=== PATIENT | female | born 1940 | race Caucasian/White ===

== ENCOUNTER 2024-12-25 16:09 | Emergency (ER) | payer MEDICARE, OTHER ==
[2024-12-25 16:50] LABS: Absolute Neutrophil Ct (ANC) 7.66 x10^3/uL (1.56-6.13); BASOPHIL % 0.2 % (0.1-1.2); Basophil (Absolute #) 0.02 x10^3/uL (0.01-0.08); Eosinophil % 0.5 % (0.7-5.8); Eosinophil (Absolute #) 0.05 x10^3/uL (0.04-0.36); Hematocrit 50.1 % (34.1-44.9); Hemoglobin 16.4 g/dL (11.2-15.7); IMMATURE GRAN # 0.03 x10^3u/L (0.001-0.031); IMMATURE GRAN % 0.3 % (0.001-0.429); Lymphocyte (Absolute #) 2.29 x10^3/uL (1.18-3.74); Lymphocytes % 21.1 % (19.3-51.7); Mean Cell Volume 83.5 fL (79.4-94.8); Mean Corpuscular Hemoglobin 27.3 pg (25.6-32.2); Mean Corpuscular Hgb Concent. 32.7 g/dL (32.2-35.5); Mean Platelet Volume 11.6 fL (9.4-12.3); Monocyte (Absolute #) 0.79 x10^3/uL (0.24-0.86); Monocytes % 7.3 % (4.7-12.5); Neutrophil % 70.6 % (34.0-71.1); Platelet Count 292 x10^3/uL (182-369); Red Cell Distribution Width 13.2 % (11.7-14.4); White Blood Count 10.8 x10^3/uL (3.98-10.04)
--- NOTE | 2024-12-25 16:59 | ERPHSYRPT ---
- History of Present Illness Time Seen by Provider: 12/25/24 16:28 Historian: patient, family, EMS Exam Limitations: clinical condition Physician History: 84 years old female with history of hypertension, hiatal hernia, breast cancer presented in the ER with almost 3 days history of nausea vomiting with upper abdominal pain. Patient per family has not been taking her medications and it felt as if she was confused earlier, not acting at her baseline when they checked on her today. Patient is also having coffee-ground emesis and dark stool. Reports moderate intensity dull aching to sharp pain in the upper abdomen which comes and goes. No difficulty breathing reported. No fever or chills reported. Reports decreased oral intake for the last 2 to 3 days. Not a good historian and history is limited. Allergies/Adverse Reactions: adhesive Adverse Reaction (Verified 04/23/16 18:45) Home Medications: Amlodipine Besylate 5 mg [Norvasc 5 mg] 5 mg PO QHS 03/17/16 [History] Duloxetine HCl 60 mg PO DAILY 12/25/24 [History] Losartan Potassium 50 mg [Cozaar 50 MG] 50 mg PO DAILY 12/25/24 [History] Metformin HCl 500 mg [Glucophage 500 MG] 500 mg PO BID 12/25/24 [History] PANTOPRAZOLE 40 mg Tablet [Protonix 40MG Tablet] 40 mg PO DAILY 12/25/24 [History] Rosuvastatin Calcium 10 mg PO DAILY 12/25/24 [History] Temazepam 15 mg [Restoril 15 MG] 15 mg PO HS 12/25/24 [History] Hx Tetanus, Diphtheria Vaccination/Date Given: Yes Hx Influenza Vaccination/Date Given: Yes Hx Pneumococcal Vaccination/Date Given: Yes - Review of Systems Constitutional: Fatigue, Weakness Eyes: No Symptoms Ears, Nose, & Throat: No Symptoms Respiratory: No Symptoms Cardiac: No Symptoms Abdominal/Gastrointestinal: Abdominal Pain, Nausea, Diarrhea, Melena Genitourinary Symptoms: No Symptoms Musculoskeletal: Arthralgias Neurological: No Symptoms Endocrine: No Symptoms Hematologic/Lymphatic: No Symptoms - Past Medical History Neurological History: No Pertinent History Cardiac History: High Cholesterol, Hypertension Respiratory History: No Pertinent History Endocrine Medical History: Diabetes Type II, Other Musculoskeletal History: Osteoarthritis Other Medical History: SEES DR WEBSTER FOR KIDNEY DISEASE STAGE 3. HX BREAST CA WITH RIGHT MASTECTOMY. - NO CHEMO/RADIATION. VACCINATED FOR COVID. - Past Surgical History Past Surgical History: Yes Neuro Surgical History: No Pertinent History Cardiac: No Pertinent History Respiratory: No Pertinent History Gastrointestinal: Cholecystectomy, Hernia Repair Genitourinary: No Pertinent History Musculoskeletal: Joint Replacement, Orthopedic Surgery Female Surgical History: Mastectomy Other Surgical History: isael knee.replacement cataract removed. knee arthroscopy. mastectomy on R breast. breast reduction on L side - Social History Smoking Status: Former smoker Exposure to second hand smoke: No - Nursing Vital Signs Nursing Vital Signs: Initial Vital Signs Temperature 98.9 F 12/25/24 16:10 Pulse Rate 98 H 12/25/24 16:10 Respiratory Rate 21 12/25/24 16:10 Blood Pressure 143/108 12/25/24 16:10 O2 Sat by Pulse Oximetry 98 12/25/24 16:10 Pain Scale Pain Intensity 0 - Physical Exam General Appearance: no apparent distress Eye Exam: PERRL/EOMI Ears, Nose, Throat Exam: normal ENT inspection Neck Exam: normal inspection, non-tender, supple, full range of motion Respiratory Exam: normal breath sounds, lungs clear Cardiovascular Exam: regular rate/rhythm, normal heart sounds Gastrointestinal/Abdomen Exam: soft, normal bowel sounds, tenderness (Upper abdominal tenderness) Back Exam: normal inspection, normal range of motion Extremity Exam: normal inspection, normal range of motion Neurologic Exam: alert, oriented x 3, cooperative, pole incisor operator II-XII nml as tested Skin Exam: normal color SpO2 Interpretation: normal SpO2: 96 O2 Delivery: Room Air Ordered Tests: Active Orders 24 hr Category Date Time Status EKG-ER Only STAT Care 12/25/24 16:43 Active IV Insertion STAT Care 12/25/24 16:43 Active NPO (ED) STAT Care 12/25/24 16:43 Active ABDOMEN AND PELVIS W CONTRAST [CT] Stat Exams 12/25/24 16:44 Taken CBC W DIFF Stat Lab 12/25/24 16:35 Completed CMP Stat Lab 12/25/24 16:35 Completed CULTURE,URINE Stat Lab 12/25/24 18:20 Received LIPASE Stat Lab 12/25/24 16:35 Completed Lactic Acid Stat Lab 12/25/24 16:50 Completed Lactic Acid Stat Lab 12/25/24 18:51 Completed TROPONIN Q4H Lab 12/25/24 16:35 Completed TROPONIN Q4H Lab 12/25/24 19:50 Completed TROPONIN Q4H Lab 12/26/24 00:45 Ordered UA W/RFX UR CULTURE Stat Lab 12/25/24 18:20 Completed Medication Summary Generic Name Dose Route Start Last Admin Trade Name Onelia PRN Reason Stop Dose Admin Pantoprazole Sodium 80 mg/ 500 mls @ 50 mls/hr 12/25/24 17:45 12/25/24 18:34 Sodium Chloride IV 01/24/25 17:44 50 mls/hr .Q10H JO ANN 50 mls/hr Administration Octreotide Acetate 50 mcg 12/25/24 21:45 Octreotide Acetate 50 Mcg/Ml Ampul IV 01/24/25 21:44 DIRECTIONS UNKNOWN JO ANN Discontinued Medications Generic Name Dose Route Start Last Admin Trade Name Garyq PRN Reason Stop Dose Admin Fentanyl Citrate 50 mcg 12/25/24 16:43 12/25/24 17:03 Fentanyl Citrate 100 Mcg/2 Ml* Vial IV 12/25/24 16:44 50 mcg STAT ONE Administration Fentanyl Citrate Confirm 12/25/24 17:00 Fentanyl Citrate 100 Mcg/2 Ml* Vial Administered 12/25/24 17:01 Dose 100 mcg .ROUTE .STK-MED ONE Fentanyl Citrate 50 mcg 12/25/24 19:47 12/25/24 19:52 Fentanyl Citrate 100 Mcg/2 Ml* Vial IV 12/25/24 19:48 50 mcg STAT ONE Administration Fentanyl Citrate Confirm 12/25/24 19:49 Fentanyl Citrate 100 Mcg/2 Ml* Vial Administered 12/25/24 19:50 Dose 100 mcg .ROUTE .STK-MED ONE Hydralazine HCl 10 mg 12/25/24 18:09 12/25/24 18:35 Hydralazine Hcl 20 Mg/Ml Vial IV 12/25/24 18:10 10 mg STAT ONE Administration Hydralazine HCl Confirm 12/25/24 18:31 Hydralazine Hcl 20 Mg/Ml Vial Administered 12/25/24 18:32 Dose 20 mg .ROUTE .STK-MED ONE Hydralazine HCl 10 mg 12/25/24 21:42 Hydralazine Hcl 20 Mg/Ml Vial IV 12/25/24 21:43 STAT ONE Sodium Chloride 1,000 mls @ 999 mls/hr 12/25/24 16:43 12/25/24 18:43 Sodium Chloride 0.9% 1000 Ml IV 12/25/24 17:43 Infused .Q1H1M STA Infusion Sodium Chloride Confirm 12/25/24 17:00 Sodium Chloride 0.9% 1000 Ml Administered 12/25/24 17:01 Dose 1,000 mls @ ud .ROUTE .STK-MED ONE Sodium Chloride Confirm 12/25/24 18:00 Sodium Chloride 0.9% 500 Ml Administered 12/25/24 18:01 Dose 500 mls @ ud IV .STK-MED ONE Ceftriaxone Sodium 2 gm in 100 mls @ 200 mls/hr 12/25/24 20:26 12/25/24 20:34 Rocephin 2 Gm/100 Ml Nacl IV 12/25/24 20:55 100 ml/hr STAT ONE 100 mls/hr Administration Ceftriaxone Sodium Confirm 12/25/24 20:31 Rocephin 2 Gm/100 Ml Nacl Administered 12/25/24 20:32 Dose 2 gm in 100 mls @ ud IV .STK-MED ONE Octreotide Acetate 50 mcg 12/25/24 21:39 Octreotide Acetate 50 Mcg/Ml Ampul IV 12/25/24 21:40 ONCE STA Ondansetron HCl 4 mg 12/25/24 16:43 12/25/24 17:03 Ondansetron Hcl 4 Mg/2 Ml Vial IV 12/25/24 16:44 4 mg STAT ONE Administration Ondansetron HCl Confirm 12/25/24 17:00 Ondansetron Hcl 4 Mg/2 Ml Vial Administered 12/25/24 17:01 Dose 4 mg .ROUTE .STK-MED ONE Pantoprazole Sodium 40 mg 12/25/24 16:43 12/25/24 17:03 Pantoprazole 40 Mg Vial IV 12/25/24 16:44 40 mg STAT ONE Administration Pantoprazole Sodium Confirm 12/25/24 17:00 Pantoprazole 40 Mg Vial Administered 12/25/24 17:01 Dose 40 mg IV .STK-MED ONE Pantoprazole Sodium Confirm 12/25/24 18:00 Pantoprazole 40 Mg Vial Administered 12/25/24 18:01 Dose 80 mg IV .STK-MED ONE Lab/Rad Data: Laboratory Result Diagrams 12/25/24 16:35 12/25/24 16:35 Laboratory Results 0512/25/24 12/25/24 Range/Units 19:50 19:36 18:51 WBC (3.98-10.04) x10^3/uL RBC (3.93-5.22) x10^6/uL Hgb (11.2-15.7) g/dL Hct (34.1-44.9) % MCV (79.4-94.8) fL MCH (25.6-32.2) pg MCHC (32.2-35.5) g/dL RDW (11.7-14.4) % Plt Count (182-369) x10^3/uL MPV (9.4-12.3) fL Gran % (34.0-71.1) % Immature Gran % (Auto) (0.001-0.429) % Nucleat RBC Rel Count (0.00-0.2) % Eos # (Auto) (0.04-0.36) x10^3/uL Immature Gran # (Auto) (0.001-0.031) x10^3u/L Absolute Lymphs (auto) (1.18-3.74) x10^3/uL Absolute Monos (auto) (0.24-0.86) x10^3/uL Absolute Nucleated RBC (0.00-0.012) x10^3u/L Lymphocytes % (19.3-51.7) % Monocytes % (4.7-12.5) % Eosinophils % (0.7-5.8) % Basophils % (0.1-1.2) % Absolute Granulocytes (1.56-6.13) x10^3/uL Basophils # (0.01-0.08) x10^3/uL Sodium (135-145) mmol/L Potassium (3.5-5.1) mmol/L Chloride (98-107) mmol/L Carbon Dioxide (22-30) mmol/L Anion Gap (5-15) MEQ/L BUN (7-17) mg/dL Creatinine (0.52-1.04) mg/dL Estimated GFR ML/MIN Glucose (74-106) mg/dL Lactic Acid 2.4 H (0.4-2.0) Calcium (8.4-10.2) mg/dL Total Bilirubin (0.2-1.3) mg/dL AST (14-36) U/L ALT (0-35) U/L Alkaline Phosphatase (38-126) U/L Ammonia < 9 L (9-30) umol/L Troponin I < 0.012 (0.000-0.033) ng/mL Serum Total Protein (6.3-8.2) g/dL Albumin (3.5-5.0) g/dL Lipase (23-300) U/L Urine Color (Yellow) Urine Appearance (Clear) Urine pH (4.6-8.0) Ur Specific [place] (1.005-1.030) Urine Protein (Negative) Urine Glucose (UA) (Negative) mg/dL Urine Ketones (Negative) Urine Blood (Negative) Urine Nitrite (Negative) Urine Bilirubin (Negative) Urine Urobilinogen (0.2) mg/dL Ur Leukocyte Esterase (Negative) U Hyaline Cast (Auto) (0-2) /LPF Urine Microscopic RBC (0-5) /HPF Urine Microscopic WBC (0-5) /HPF Ur Epithelial Cells (None Seen) /HPF Urine Bacteria (None Seen) /HPF Urine Culture Reflexed (NO) 12/25/24 12/25/24 12/25/24 Range/Units 18:20 16:50 16:35 WBC (3.98-10.04) x10^3/uL RBC (3.93-5.22) x10^6/uL Hgb (11.2-15.7) g/dL Hct (34.1-44.9) % MCV (79.4-94.8) fL MCH (25.6-32.2) pg MCHC (32.2-35.5) g/dL RDW (11.7-14.4) % Plt Count (182-369) x10^3/uL MPV (9.4-12.3) fL Gran % (34.0-71.1) % Immature Gran % (Auto) (0.001-0.429) % Nucleat RBC Rel Count (0.00-0.2) % Eos # (Auto) (0.04-0.36) x10^3/uL Immature Gran # (Auto) (0.001-0.031) x10^3u/L Absolute Lymphs (auto) (1.18-3.74) x10^3/uL Absolute Monos (auto) (0.24-0.86) x10^3/uL Absolute Nucleated RBC (0.00-0.012) x10^3u/L Lymphocytes % (19.3-51.7) % Monocytes % (4.7-12.5) % Eosinophils % (0.7-5.8) % Basophils % (0.1-1.2) % Absolute Granulocytes (1.56-6.13) x10^3/uL Basophils # (0.01-0.08) x10^3/uL Sodium (135-145) mmol/L Potassium (3.5-5.1) mmol/L Chloride (98-107) mmol/L Carbon Dioxide (22-30) mmol/L Anion Gap (5-15) MEQ/L BUN (7-17) mg/dL Creatinine (0.52-1.04) mg/dL Estimated GFR ML/MIN Glucose (74-106) mg/dL Lactic Acid 2.3 H (0.4-2.0) Calcium (8.4-10.2) mg/dL Total Bilirubin (0.2-1.3) mg/dL AST (14-36) U/L ALT (0-35) U/L Alkaline Phosphatase (38-126) U/L Ammonia (9-30) umol/L Troponin I < 0.012 (0.000-0.033) ng/mL Serum Total Protein (6.3-8.2) g/dL Albumin (3.5-5.0) g/dL Lipase (23-300) U/L Urine Color Yellow (Yellow) Urine Appearance Clear (Clear) Urine pH 6.0 (4.6-8.0) Ur Specific [place] >=1.030 A (1.005-1.030) Urine Protein >=1000 A (Negative) Urine Glucose (UA) Negative (Negative) mg/dL Urine Ketones 15 A (Negative) Urine Blood Trace (Negative) Urine Nitrite Negative (Negative) Urine Bilirubin Negative (Negative) Urine Urobilinogen 1.0 A (0.2) mg/dL Ur Leukocyte Esterase Negative (Negative) U Hyaline Cast (Auto) NONE SEEN (0-2) /LPF Urine Microscopic RBC 0-2 (0-5) /HPF Urine Microscopic WBC 3-5 (0-5) /HPF Ur Epithelial Cells Rare (None Seen) /HPF Urine Bacteria Many A (None Seen) /HPF Urine Culture Reflexed YES (NO) 12/25/24 12/25/24 Range/Units 16:35 16:35 WBC 10.8 H (3.98-10.04) x10^3/uL RBC 6.00 H (3.93-5.22) x10^6/uL Hgb 16.4 H (11.2-15.7) g/dL Hct 50.1 H (34.1-44.9) % MCV 83.5 (79.4-94.8) fL MCH 27.3 (25.6-32.2) pg MCHC 32.7 (32.2-35.5) g/dL RDW 13.2 (11.7-14.4) % Plt Count 292 (182-369) x10^3/uL MPV 11.6 (9.4-12.3) fL Gran % 70.6 (34.0-71.1) % Immature Gran % (Auto) 0.3 (0.001-0.429) % Nucleat RBC Rel Count 0.0 (0.00-0.2) % Eos # (Auto) 0.05 (0.04-0.36) x10^3/uL Immature Gran # (Auto) 0.03 (0.001-0.031) x10^3u/L Absolute Lymphs (auto) 2.29 (1.18-3.74) x10^3/uL Absolute Monos (auto) 0.79 (0.24-0.86) x10^3/uL Absolute Nucleated RBC 0.00 (0.00-0.012) x10^3u/L Lymphocytes % 21.1 (19.3-51.7) % Monocytes % 7.3 (4.7-12.5) % Eosinophils % 0.5 L (0.7-5.8) % Basophils % 0.2 (0.1-1.2) % Absolute Granulocytes 7.66 H (1.56-6.13) x10^3/uL Basophils # 0.02 (0.01-0.08) x10^3/uL Sodium 140 (135-145) mmol/L Potassium 3.6 (3.5-5.1) mmol/L Chloride 104 (98-107) mmol/L Carbon Dioxide 19 L (22-30) mmol/L Anion Gap 20.0 H (5-15) MEQ/L BUN 38 H (7-17) mg/dL Creatinine 0.87 (0.52-1.04) mg/dL Estimated GFR 66.5 ML/MIN Glucose 208 H (74-106) mg/dL Lactic Acid (0.4-2.0) Calcium 10.5 H (8.4-10.2) mg/dL Total Bilirubin 0.70 (0.2-1.3) mg/dL AST 22 (14-36) U/L ALT 16 (0-35) U/L Alkaline Phosphatase 68 (38-126) U/L Ammonia (9-30) umol/L Troponin I (0.000-0.033) ng/mL Serum Total Protein 6.3 (6.3-8.2) g/dL Albumin 4.4 (3.5-5.0) g/dL Lipase 54 (23-300) U/L Urine Color (Yellow) Urine Appearance (Clear) Urine pH (4.6-8.0) Ur Specific [place] (1.005-1.030) Urine Protein (Negative) Urine Glucose (UA) (Negative) mg/dL Urine Ketones (Negative) Urine Blood (Negative) Urine Nitrite (Negative) Urine Bilirubin (Negative) Urine Urobilinogen (0.2) mg/dL Ur Leukocyte Esterase (Negative) U Hyaline Cast (Auto) (0-2) /LPF Urine Microscopic RBC (0-5) /HPF Urine Microscopic WBC (0-5) /HPF Ur Epithelial Cells (None Seen) /HPF Urine Bacteria (None Seen) /HPF Urine Culture Reflexed (NO) - Progress Progress: improved Progress Note: 12/25/24 20:42 differential diagnoses include but not limited to: Upper GI bleed, duodenal/gastric ulcer perforation, esophageal varices bleed, obstruction, sepsis 84 years old with history of hypertension, GERD/hiatal hernia is evaluated in the ER for abdominal pain with coffee-ground emesis and dark stool with some questionable confusion. Patient is awake alert and answering questions appropriately throughout stay in the ER. She although is a little slow. No focal neurodeficit. No fall or trauma reported. She is given fluid bolus and symptomatic treatment and started on Protonix bolus followed by drip for GI bleed. Patient was hypertensive, has not been taking her blood pressure medication with blood pressure in 200s, given hydralazine with improvement in pressure to 150s/160s. Has normal white count, hemoglobin of 16 with a baseline around 13 which I believe is secondary to dehydration, chemistries with elevated BUN of 38, baseline in 20s and normal creatinine. Obtain CT abdomen pelvis with contrast which showed mild abdominal pelvic ascites with cirrhotic changes and no other acute intra-abdominal finding. Does have moderate fecal load. She has questionable UTI and given a dose of Rocephin which would also cover for SBP. Has normal ammonia level. Lactate is 2.3, she is receiving fluids. Discussed with hospitalist Dr. Steiner here at [place], agreed with admission if general surgery/GI is okay. Discussed with Dr. Thornton, reviewed history, workup, recommended transfer to facility where they can have varices banding as her bleeding could be from esophageal varices. Discussed with patient and family and they agreed to go to [place], I have called [facility], discussed with Dr. Neil WATT, reviewed history, workup, agreed with transfer. He recommended starting her on octreotide which is ordered. Patient blood pressure was again creeping up in 180s, she will be given another dose of hydralazine. Complexity of problems addressed: High acuity Complexity of data reviewed/analyzed: Extensive Complexity/risk of complications: High risk Discussed with Dr.: Ramírez, Other (Dr. Steiner hospitalist [place], Dr. Loo hospitalist [facility]) Counseled pt/family regarding: lab results, diagnosis, rad results Medical Desision Making - Independent Historian Additional History obtained from: Child, Registered Nurse/EMT - Discussion of managment Care discussed with:: hospitalist Reviewed:: Test results Agreed on:: Treatment plan Will see patient: in hospital - Diagnostic Testing Diagnostic test were ordered, analyzed, and reviewed by me: Yes Radiological Interpretation: Reviewed by me, Teleradiologist Report - Risk of complications The pt has a mod risk of morbidity or mortality based on: Need for prescription drug management The pt has a high risk of morbidity or mortality based on: Drug therapy requiring intensive monitoring for toxicity, Decision regarding hospitilization or escalation of hosp level of care - Departure Departure Disposition: Transfer Clinical Impression: GI bleed, Uncontrolled hypertension, Ascites, UTI (urinary tract infection) Condition: Good Critical Care Time: No Referrals: CINTHYA CALDERON NP [Primary Care Provider, [facility]] - Follow up/PCP as directed
[2024-12-25] MEDS ORDERED: SUBLIMAZE 100 MCG/2 ML ONE ×2 (17:00→19:49)
[2024-12-25] MEDS ORDERED: PROTONIX 40 MG IV IV ONE ×2 (17:00→18:00)
[2024-12-25] MEDS ORDERED: Sodium Chloride 0.9% 1000 ML 1,000 ML ONE (17:00)
[2024-12-25] MEDS ORDERED: Zofran 4 MG/2 ML VIAL ONE (17:00)
[2024-12-25] MEDS: Sodium Chloride 0.9% 1000 ML 1,000 ML IV STA (17:02)
[2024-12-25] MEDS: SUBLIMAZE 100 MCG/2 ML IV ONE ×2 (17:03→19:52)
[2024-12-25] MEDS: PROTONIX 40 MG IV IV ONE (17:03)
[2024-12-25] MEDS: Zofran 4 MG/2 ML VIAL IV ONE (17:03)
[2024-12-25 17:06] LABS: ALBUMIN 4.4 g/dL (3.5-5.0); BILIRUBIN,TOTAL 0.7 mg/dL (0.2-1.3); Calcium 10.5 mg/dL (8.4-10.2); Creatinine 1 0.87 mg/dL (0.52-1.04); EST GLOMERULAR FILTRATION RATE 66.5 ML/MIN; Potassium 3.6 mmol/L (3.5-5.1); Total Protein 6.3 g/dL (6.3-8.2)
[2024-12-25 17:49] VITALS: TEMP 98.9
[2024-12-25] MEDS ORDERED: Sodium Chloride 0.9% 500 ML 500 ML IV ONE (18:00)
[2024-12-25] MEDS ORDERED: APRESOLINE 20 MG/ML INJ ONE ×2 (18:31→22:00)
[2024-12-25] MEDS: PROTONIX 40 MG IV*** 80 MG in Sodium Chloride 0.9% 500 ML 500 ML IV SCH (18:34)
[2024-12-25] MEDS: APRESOLINE 20 MG/ML INJ IV ONE ×2 (18:35→22:05)
[2024-12-25 18:52] LABS: Appearance Clear (Clear); Bacteria Many /HPF (None Seen); Bilirubin Negative (Negative); Blood Trace (Negative); Epithelial Cells Rare /HPF (None Seen); Glucose, Urine Negative (Negative); Hyaline Casts NONE SEEN /LPF (0-2); Ketones 15 (Negative); Leukocyte Esterase Negative (Negative); Nitrite Negative (Negative); Protein,Urine Dip >=1000 (Negative); RBC 0-2 /HPF (0-5); Specific Gravity >=1.030 (1.005-1.030)
[2024-12-25] MEDS ORDERED: ROCEPHIN 2 GM/100 ML NACL 2 GM/100 ML IVPB IV ONE (20:31)
[2024-12-25] MEDS: ROCEPHIN 2 GM/100 ML NACL 2 GM/100 ML IVPB IV ONE (20:34)
[2024-12-25] MEDS ORDERED: Sodium Chloride 0.9% 200 ML ONE (22:27)
[2024-12-25] MEDS: SANDOSTATIN 50MCG/ML IV STA (22:43)
[2024-12-25] MEDS: SANDOSTATIN 50MCG/ML IV SCH (22:49)
[2024-12-26] MEDS ORDERED: Sodium Chloride 0.9% 250 ML 250 ML IV ONE (01:01)
[2024-12-26] MEDS: SANDOSTATIN 50MCG/ML IV ONE (01:27)
--- NOTE | 2024-12-26 02:09 | XRAY ---
CLINICAL HISTORY: confusion COMPARISON: None. TECHNIQUE: Multiple axial images are obtained from the skull base to the vertex without contrast. CT scan was performed according to ALARA (as low as reasonable achievable). FINDINGS: There is cerebral atrophy. Prominent CSF space noted along the bilateral frontal lobe convexity and adjacent to the bilateral cerebellar lobes- due to atrophy. No evidence of space occupying lesion, hemorrhage, edema, mass effect, midline shift, extra axial collection, or hydrocephalus is noted. Basal cisterns are symmetric and normal in size and configuration. There are scattered periventricular hypodensities as can be seen with chronic microvascular ischemic changes. The cortez-white matter differentiation is preserved. Visualized paranasal sinuses and mastoid air cells are well aerated. Orbital contents are within normal limits. Bony structures are intact. IMPRESSION: 1. No evidence of acute intracranial abnormality is demonstrated. 2. Chronic microvascular ischemic changes. 3. Cerebral atrophy. Electronically Signed by: Luca Gregg MD. (12/26/2024 02:05:01 EDT)
[2024-12-26 02:10] VITALS: BP 155/80; PULSE 102; RESP 21; O2SAT 96
--- NOTE | 2024-12-26 08:50 | XRAY ---
Indication: Abdomen pain. GI bleed. Multiple contiguous axial images obtained through the abdomen and pelvis using 80 cc Isovue 370 contrast. Comparison: December 04, 2022. Lung bases again demonstrates large hiatal hernia with intrathoracic stomach occupying left lung base with compressive atelectasis. Stable right lower lobe subsegmental atelectasis/scarring and left posterior gutter bullae/calcified granuloma. Heart not enlarged. Noncontrasted stomach and bowel loops appear nonobstructed. Worsening moderate diffuse colonic fecal debris. Again small cirrhotic appearing liver with new small abdominal/pelvic ascites. Again small left peripelvic renal cysts, splenic calcified granulomas, cholecystectomy, and hysterectomy. No walled off fluid collection or free air. Remaining liver, pancreas, spleen, adrenal glands, kidneys, ureters, and bladder are unremarkable. There remains mild scattered aortoiliac calcifications. No AAA or pathologic retroperitoneal lymphadenopathy. Osseous structures intact again with osteopenia, mild/moderate degenerative changes throughout spine, marked levorotoscoliosis, and mild degenerative changes both hips. Impression: 1. Cirrhotic liver. New small abdomen/pelvic ascites. 2. Worsening moderate diffuse fecal stasis. 3. Chronic findings including large hiatal hernia with intrathoracic stomach, left renal cysts, arteriosclerotic disease, chronic bony findings, and old granulomatous disease.
== END 2024-12-26 02:20 | disposition short-term general hospital (02) ==
LOC: ED 16:09
DX: K92.2 Gastrointestinal hemorrhage, unspecified (principal); I10 Essential (primary) hypertension; R18.8 Other ascites; N39.0 Urinary tract infection, site not specified; K74.60 Unspecified cirrhosis of liver; R11.2 Nausea with vomiting, unspecified; R10.10 Upper abdominal pain, unspecified; Z79.84 Long term (current) use of oral hypoglycemic drugs; Z79.899 Other long term (current) drug therapy
CPT/HCPCS: 36415; 70450; 74177; 80053; 81001; 82140; 83605; 83690; 84484; 85025; 87077; 87086; 87186; 93005; 96361; 96365; 96366; 96368; 96374; 96375; 96376; 99285; P9612; 51702; J0360; J0696; J2354; J2405; J3010